=== PATIENT | male | born 1955 | race Two or more races ===

== ENCOUNTER 2020-07-22 13:16 | Inpatient (IN) | payer OTHER ==
[~2020-07-22] VITALS: Ht 170.2 cm; Wt 74.8 kg
[~2020-07-22 13:16] MED LIST: CARDIZEM PO; HYDRODIURIL PO; Hyzaar 100-25 Tablet PO; ISORDIL PO; LEVAQUIN750 MG PO; LOPRESSOR 50 MG PO; MEDROL4 MG PO; TENORMIN100 M1 PO; THEO-DUR PO; VASERETIC 10-251 TAB PO; XOPENEX HFA15 GM IH; XOPENEX1.25 MG/0. IH; ZYNCOF 20-400120 ML PO
[2020-07-22] MEDS ORDERED: ADVAIR HFA 230/12 GM IH (13:34)
[2020-07-22] MEDS ORDERED: MONTELUKAST SOD10 MG PO (13:35)
[2020-07-22] MEDS ORDERED: DILTIAZEM 24HR180 MG PO (13:35)
[2020-07-22] MEDS ORDERED: [UNRECOGNIZED DRUG - OTHER] (13:36)
[2020-07-22] MEDS ORDERED: SYMBICORT 16010.2 GM IH (13:36)
[2020-07-22] MEDS ORDERED: PROAIR HFA8.5 GM IH (13:36)
== END 2020-08-01 15:50 | disposition home or self-care (01) | DRG 194 ==
LOC: ER 13:16 → MEDJ 19:41 → MEDI 19:41 → SURG 19:41
PROVIDERS: ADMIT Internal Medicine; ATTEND Internal Medicine
PROC: 4A033R1 Measurement of Arterial Saturation, Peripheral, Percutaneous Approach (ICD-10-PCS; principal; 2020-07-22)
PROC: 3E0F7GC Introduction of Other Therapeutic Substance into Respiratory Tract, Via Natural or Artificial Opening (ICD-10-PCS; 2020-07-22)
PROC: BB24ZZZ Computerized Tomography (CT Scan) of Bilateral Lungs (ICD-10-PCS; 2020-07-22)
PROC: B922ZZZ Computerized Tomography (CT Scan) of Paranasal Sinuses (ICD-10-PCS; 2020-07-26)
DX: J16.8 Pneumonia due to other specified infectious organisms (principal); J45.42 Moderate persistent asthma with status asthmaticus; J45.902 Unspecified asthma with status asthmaticus; Z20.828 Contact with and (suspected) exposure to other viral communicable diseases; J32.8 Other chronic sinusitis

== ENCOUNTER 2023-08-13 00:49 | Emergency (ER) | payer OTHER ==
[~2023-08-13] VITALS: Ht 170.2 cm; Wt 120.2 kg
[~2023-08-13 00:49] MED LIST changes: +ADVAIR HFA 230/12 GM IH; +DILTIAZEM 24HR180 MG PO; +MONTELUKAST SOD10 MG PO; +PROAIR HFA8.5 GM IH; +SYMBICORT 16010.2 GM IH; +[UNRECOGNIZED DRUG - OTHER]
== END 2023-08-13 04:46 | disposition home or self-care (01) ==
LOC: ER 00:49
DX: J06.9 Acute upper respiratory infection, unspecified (principal); J45.909 Unspecified asthma, uncomplicated; Z88.0 Allergy status to penicillin; Z88.8 Allergy status to other drugs, medicaments and biological substances
CPT/HCPCS: 94640; 96365; 99284; J2930

== ENCOUNTER 2025-08-31 10:10 | Emergency (ER) | payer OTHER ==
[~2025-08-31] VITALS: Ht 167.6 cm; Wt 78.5 kg
[2025-08-31] MEDS ORDERED: IPRATROPIUM BROMIDE 0.5 MG/2.5 ML AMPUL.NEB IH SCH (11:30)
[2025-08-31] MEDS ORDERED: METHYLPREDNISOLONE SOD SUCC 125 MG VIAL IV ONE (11:30)
[2025-08-31] MEDS ORDERED: LEVALBUTEROL HCL 1.25 MG/3 ML SOLUTION IH SCH (11:45)
[2025-08-31] MEDS ORDERED: AZITHROMYCIN 500 MG VIAL IV ONE (11:45)
[2025-08-31 13:06] LABS: BASO % 0.2 % (0.1-1.2); EOS # 0.00 (0.04-0.54); EOS % 0.0 % (0.7-7.0); LYMPH # 0.88 (1.18-3.74); LYMPH % 15.6 % (19.3-53.1); MEAN PLATELET VOLUME 10.10 fl (9.4-12.4); MONO # 0.85 (0.24-0.82); NEUT # 3.87 (1.56-6.13); NEUT % 68.6 % (34.0-71.1); RED CELL DISTRIBUTION WIDTH 13.8 % (11.6-14.4)
[2025-08-31 13:33] LABS: INR 1.14
[2025-08-31 13:36] LABS: MONO % 15.1 % (4.7-12.5)
[2025-08-31 13:38] LABS: ERYTHROCYTE SEDIMENTATION RATE 1 mm/hr (0-20)
[2025-08-31 13:52] LABS: BUN CREA RATIO 23.0 (7.0-25.0); CREATININE SERUM 0.86 mg/dL (0.70-1.30); GFR 87.91; GLUCOSE FASTING 110.0 mg/dL (65-100); OSMOLALITY SERUM 286.0 MOSM/KG (275-295)
[2025-08-31 14:03] LABS: COVID-19 AG NEGATIVE (NEGATIVE)
[2025-08-31] MEDS ORDERED: OSEL75CA PO (14:31)
[2025-08-31] MEDS ORDERED: MEDROLPACK PO (14:31)
[2025-08-31] MEDS ORDERED: ALBUTEROL2.5 MG/3 M IH (14:31)
[2025-08-31] MEDS ORDERED: IPRATROPIU0.2 MG/1 M IH (14:31)
== END 2025-08-31 15:37 | disposition home or self-care (01) ==
LOC: ER 10:11
PROVIDERS: General Practice
DX: J10.1 Influenza due to other identified influenza virus with other respiratory manifestations (principal); Z20.822 Contact with and (suspected) exposure to COVID-19; I10 Essential (primary) hypertension; Z88.0 Allergy status to penicillin; Z88.8 Allergy status to other drugs, medicaments and biological substances; Z87.09 Personal history of other diseases of the respiratory system
CPT/HCPCS: 36415; 71046; 82803; 94640; 99284; J0456